=== PATIENT | male | born 1955 | race Caucasian/White ===

== ENCOUNTER 2016-07-25 09:07 | Day surgery (SDC) | payer MEDICARE ==
--- NOTE | 2016-07-25 08:07 | HP ---
DATE OF SURGERY: 07/25/2016 HISTORY OF PRESENT ILLNESS: The patient is a 61 year-old had a knot on his right thigh over the past three to four years increasing in size, increasing aches and pains and desires removal. PAST MEDICAL HISTORY: He denies any chronic illnesses. PAST SURGICAL HISTORY: He had a fistula removed in the past. MEDICATIONS: Tylenol PM PRN. ALLERGIES: NKDA. FAMILY HISTORY: Negative. SOCIAL HISTORY: He chews tobacco, denies alcohol abuse. REVIEW OF SYSTEMS: Ten systems reviewed per admission assessment. No chest pain or palpitations other systems negative or noncontributory as above and per preadmission questionnaire. PHYSICAL EXAMINATION: GENERAL: No acute distress. HEENT: Sclerae nonicteric. NECK: No JVD. CHEST: Equal excursion, nonlabored breathing. CVS: Regular rate and rhythm. ABDOMEN: Soft, nondistended. EXTREMITIES: Pertinent for the right thigh subcutaneous mass, question lipoma or other nodule. No significant edema. NEURO: Alert, moving extremities grossly symmetrically. IMPRESSION: Enlarging painful right thigh subcutaneous mass or lipoma. I feel the patient will benefit from excisional biopsy. Risks and benefits explained in detail including but not limited to bleeding or infection, risk of wound dehiscence or infection possibly requiring packing, general risk of aches, pains, burning or numbness. He also understands likely what we excise will not recur but he could get similar nodule or lipoma adjacent to or elsewhere on his body. He understands as well as general risk of anesthesia, deep venous thrombosis, pulmonary embolism, pneumonia, will proceed with excisional biopsy of right thigh lipoma as an outpatient.
[~2016-07-25 09:07] MED LIST: BICITRA 30 ML CUP ONE; BICITRA 30 ML CUP PO ONE; DIPRIVAN 200 MG/20 ML IV ONE; Decadron 4 MG INJ IV ONE; KEFZOL 1 GM/50 ML PREMIX** 50 ML IV ONE; Lactated Ringers 1,000 ML IV ONE; Lactated Ringers 1,000 ML IV SCH; Pepcid 20 MG VIAL IV ONE; SUBLIMAZE 100 MCG/2 ML IV ONE; Sensorcaine 0.25% 10 ML ONE; TORAdol 30 mg Injection IV ONE; Zofran 4 MG/2 ML VIAL IV ONE
[2016-07-25 12:58] VITALS: O2SAT 97
[2016-07-25 13:14] VITALS: BP 130/75; PULSE 57
--- NOTE | 2016-07-25 15:52 | OP ---
SURGERY DATE/TIME: 07/25/2016 1048 PREOPERATIVE DIAGNOSIS: Enlarging symptomatic right thigh subcutaneous mass. POSTOPERATIVE DIAGNOSIS: Enlarging symptomatic right thigh subcutaneous mass (lipoma). PROCEDURE: Excisional biopsy of right thigh lipoma (approximately 7.5 cm with margins) with intermediate closure. SURGEON: Dr. Mikie Arriaga. ANESTHESIA: General. 0.25% Marcaine local. ESTIMATED BLOOD LOSS: Minimal. INDICATIONS: As noted above. Risks and benefits explained in detail and not limited to and consent obtained. DESCRIPTION OF PROCEDURE AND FINDINGS: The patient was taken to the operating room. General anesthesia was induced. The site had been confirmed with the patient in the preoperative holding area. The thigh is prepped and draped in usual sterile fashion. After official time out and no disagreement with planned procedure a longitudinal incision made directly overlying the area, dissection carried down. This had a lobulated lipomatous density more dense than the normal appearing subcutaneous fat surrounding the area. It was slowly and carefully freed from the underlying fascia and passed off. It measured about 7.5 cm in size. Good hemostasis noted. Subcu closed with 3-0 Vicryl. Skin closed with 4-0 Vicryl. Steri-Strips and sterile dressing applied. The patient tolerated the procedure well. There were no immediate complications. Findings discussed with the family or caregiver out in the waiting area.
== END 2016-07-25 13:15 | disposition home or self-care (01) ==
LOC: SDC 09:07
PROVIDERS: ATTEND Surgery
PROC: 0HQHXZZ Repair Right Upper Leg Skin, External Approach (ICD-10-PCS; principal; 2016-07-25)
PROC: 0HBHXZX Excision of Right Upper Leg Skin, External Approach, Diagnostic (ICD-10-PCS; 2016-07-25)
DX: D17.23 Benign lipomatous neoplasm of skin and subcutaneous tissue of right leg (principal)
CPT/HCPCS: 36415; 11406; 12032; A9270; 00400; J0690; J1100; J1885; J2405; J2704; J3010